=== PATIENT | male | born 1995 | race African-American/Black ===

== ENCOUNTER 2017-01-23 09:26 | Emergency (ER) | payer MEDICAID, OTHER ==
[~2017-01-23] VITALS: Ht 182.9 cm; Wt 78.0 kg
[~2017-01-23 09:26] MED LIST: ALBUTEROL; LEVA0.31
[2017-01-23] MEDS ORDERED: ALBUTEROL (0.083%) 2.5MG/3ML NEB HHN STA (11:32)
[2017-01-23] MEDS ORDERED: IPRATROPIUM BROMIDE (0.02%) 0.5MG/2.5ML NEB HHN STA (11:32)
[2017-01-23] MEDS ORDERED: PREDNISONE 20MG TABLET PO STA (11:32)
[2017-01-23 12:45] VITALS: BP 121/69
== END 2017-01-23 13:10 | disposition home or self-care (01) ==
LOC: ER 11:44
DX: J45.901 Unspecified asthma with (acute) exacerbation (principal)
CPT/HCPCS: 94640; 99283; J7512; J7611